=== PATIENT | female | born 1985 | race Caucasian/White ===

== ENCOUNTER 2018-02-24 19:15 | Emergency (ER) | payer MEDICAID ==
[~2018-02-24] VITALS: Ht 170.2 cm; Wt 78.0 kg
[~2018-02-24 19:15] MED LIST: ACET-2863 PO; DOCU-299 PO
[2018-02-24 19:19] VITALS: BP 88/50
--- NOTE | 2018-02-24 19:22 | NUR ---
PT TAKEN TO BED 11
--- NOTE | 2018-02-24 19:30 | NUR ---
Dr. Jasso evaluating patient at bedside.
--- NOTE | 2018-02-24 19:30 | NUR ---
32 YO M BIB W/ C/O "SOB". PT REPORTS IT FEELS DIFFICULT TO CATCH HER BREATH AND HER HEART FEELS LIKE IT IS "JUMPING". PT REPORTS SOME JAW STUFFNESS BILATERALLY THAT IS WORSE ON THE LEFT SIDE THAT FEELS "LIKE A BALL". DENIES N/V AT THIS TIME. SHE REPORTS PRESSURE AND TIGHTNESS TO THE BACK OF HER HEAD AND SHE FEELS "REALLY COLD". A&O X 4. GCS 15. CMS INTACT. RR EVEN AND UNLABORED. LUNGS BILATERALLY CLEAR. SKIN NON-DIAPHORETIC. PT HOOKED UP TO BEDSIDE MONITOR. ER MD LEVY NOTIFIED. PT NEEDS MET. SAFETY PRECAUTIONS IN PLACE. WILL CONTINUE TO MONITOR.
[2018-02-24] MEDS ORDERED: LORazepam 2 MG/ML VIAL IM ONE (19:40)
[2018-02-24] MEDS ORDERED: KETOROLAC 60 MG/2 ML VIAL IM ONE (20:35)
[2018-02-24 20:45] VITALS: BP 121/77
--- NOTE | 2018-02-24 20:45 | NUR ---
Patient discharged with v/s stable. Written and verbal after care instructions given and explained. Patient alert, oriented and verbalized understanding of instructions. Ambulatory with steady gait. All questions addressed prior to discharge. ID band removed. Patient advised to follow up with PMD. Rx of Motrin and Xanax given. Patient educated on indication of medication including possible reaction and side effects. Opportunity to ask questions provided and answered.
== END 2018-02-24 20:45 | disposition home or self-care (01) ==
LOC: MED 19:15
DX: R06.4 Hyperventilation (principal); H92.09 Otalgia, unspecified ear; F03.90 Unspecified dementia, unspecified severity, without behavioral disturbance, psychotic disturbance, mood disturbance, and anxiety; Z79.899 Other long term (current) drug therapy; Z91.013 Allergy to seafood
CPT/HCPCS: 96372; 99284; J1885; J2060

== ENCOUNTER 2019-01-07 23:05 | Emergency (ER) | payer MEDICAID ==
[~2019-01-07] VITALS: Ht 165.1 cm; Wt 65.8 kg
[~2019-01-07 23:05] MED LIST changes: -ACET-2863 PO; +HYDR-5123 PO
[2019-01-07 23:07] VITALS: BP 151/85
--- NOTE | 2019-01-07 23:13 | NUR ---
PT AMBULATORY TO ER LOBBY W/ STEADY GAIT IN STABLE CONDITION.
--- NOTE | 2019-01-08 01:05 | NUR ---
PT AMBULATED TO ER BED 3
--- NOTE | 2019-01-08 01:10 | NUR ---
PT TO ED WITH C/O FEELING ANXIOUS. PT REPORTS HX OF ANXIETY. PT DENIES SOB/CP AT THIS TIME. PT PLACED INTO BED, PENDING MD [place].
[2019-01-08] MEDS ORDERED: ALPRAZolam 0.5 MG TAB PO ONE (01:25)
[2019-01-08 02:25] VITALS: BP 131/78
== END 2019-01-08 02:25 | disposition home or self-care (01) ==
LOC: MED 23:05
DX: F41.9 Anxiety disorder, unspecified (principal); R22.1 Localized swelling, mass and lump, neck; Z91.013 Allergy to seafood; Z79.899 Other long term (current) drug therapy; Z79.891 Long term (current) use of opiate analgesic
CPT/HCPCS: 93005; 99283